=== PATIENT | female | born 1965 | race Caucasian/White ===

== ENCOUNTER 2021-05-27 11:39 | Outpatient (REF) | payer OTHER, SELFPAY ==
[2021-05-27 12:16] LABS: MANUAL DIFF FLAG NO
[2021-05-27 12:31] LABS: Basophils Percent Auto 0.7 % (0-2); Eosinophils Absolute Auto 0.1 X10*3/uL (0.0-0.4); Eosinophils Percent Auto 2.1 % (0-4); Hematocrit 38.3 % (37-47); Hemoglobin 12.5 g/dl (12.0-16.0); Imm Gran Abs Auto 0.03 X10*3/uL (0.00-0.03); Imm Gran Pct Auto 0.5 % (0.0-0.4); Lymphocytes Absolute Auto 1.6 X10*3/uL (1.2-4.9); Lymphocytes Percent Auto 27.1 % (20-40); Mean Corpuscular HGB Conc 32.6 g/dl (31.0-35.0); Mean Corpuscular Hemoglobin 26.9 pg (27.0-33.0); Mean Corpuscular Volume 82.4 fL (80-98); Mean Platelet Volume 10.2 fL (9.4-12.3); Monocytes Absolute Auto 0.5 X10*3/uL (0.1-1.2); Monocytes Percent Auto 8.2 % (2-11); Neutrophils Absolute Auto 3.5 X10*3/uL (2.0-8.3); Neutrophils Percent Auto 61.4 % (45-73); Platelet Count 363 X10*3/uL (160-400); Red Blood Count 4.65 X10*6/uL (4.20-5.50); White Blood Count 5.7 X10*3/uL (4.8-10.8)
[2021-05-27 12:32] LABS: Estimated Average Glucose 131 mg/dL; Hemoglobin A1c % 6.2 %
[2021-05-27 12:43] LABS: Alanine Aminotransferase 19 U/L (0-31); Alkaline Phosphatase 62 U/L (39-117); Anion Gap 11 (12-20); Aspartate Amino Transferase 13 U/L (5-31); Bilirubin Total 0.6 mg/dL (0.0-1.0); Blood Urea Nitrogen 14 mg/dL (9-16); Calcium 9.9 mg/dL (8.4-10.2); Carbon Dioxide 28 mmol/L (22-29); Chloride 106 mmol/L (96-108); Cholesterol 159 mg/dL; Estimated Glomerular Filt Rate > 60; Glucose Random 159 mg/dL (60-115); HDL Cholesterol 40 mg/dL; LDL Cholesterol Calculated 85 mg/dl; Potassium 4.7 mmol/L (3.3-5.1); Sodium 140 mmol/L (135-145); Total Protein 7.3 g/dL (6.5-8.0); Triglycerides 172 mg/dL
[2021-05-27 12:51] LABS: Creatinine Urine 111.25 mg/dL; Microalbum/Creatinine Ratio Ur 35.9 ug/mg cr
[2021-05-27 13:07] LABS: Free T4 (Free Thyroxine) 1.17 ng/dL (0.71-1.85); Thyroid Stimulating Hormone 2.53 uIU/mL (0.32-4.0); Vitamin D 25-OH Total 45.4 ng/mL (>30)
[2021-05-27 13:14] LABS: Folate 17.5 ng/mL (> or = 4.0); Vitamin B12 714 pg/mL (200-900)
== END 2021-05-27 11:40 | disposition home or self-care (01) ==
LOC: HO.LAB 11:39
PROVIDERS: PCP Internal Medicine; Visit Provider Internal Medicine
DX: I10 Essential (primary) hypertension (principal); E11.65 Type 2 diabetes mellitus with hyperglycemia; E78.00 Pure hypercholesterolemia, unspecified
CPT/HCPCS: 36415; 80053; 80061; 82043; 82306; 82607; 82746; 83036; 84439; 84443; 85025

== ENCOUNTER 2022-01-30 15:57 | Outpatient (REF) | payer OTHER, SELFPAY ==
[2022-01-30 16:15] LABS: MANUAL DIFF FLAG NO
[2022-01-30 16:20] LABS: Basophils Percent Auto 0.5 % (0-2); Eosinophils Absolute Auto 0.2 X10*3/uL (0.0-0.4); Eosinophils Percent Auto 2.5 % (0-4); Hematocrit 38.3 % (37.0-47.0); Hemoglobin 12.7 g/dl (12.0-16.0); Imm Gran Abs Auto 0.05 X10*3/uL (0.00-0.03); Imm Gran Pct Auto 0.6 % (0.0-0.4); Lymphocytes Absolute Auto 1.8 X10*3/uL (1.2-4.9); Lymphocytes Percent Auto 20.6 % (20-40); Mean Corpuscular HGB Conc 33.2 g/dl (31.0-35.0); Mean Corpuscular Hemoglobin 27.1 pg (27.0-33.0); Mean Corpuscular Volume 81.7 fL (80.0-98.0); Mean Platelet Volume 9.9 fL (9.4-12.3); Monocytes Absolute Auto 0.7 X10*3/uL (0.1-1.2); Monocytes Percent Auto 7.6 % (2-11); Neutrophils Percent Auto 68.2 % (45-73); Platelet Count 340 X10*3/uL (160-400); Red Blood Count 4.69 X10*6/uL (4.20-5.50); Red Cell Distribution Width 13.7 % (11.0-16.0); White Blood Count 8.8 X10*3/uL (4.8-10.8)
[2022-01-30 17:05] LABS: Alanine Aminotransferase 17 U/L (0-31); Albumin Level 3.9 g/dL (3.5-5.0); Alkaline Phosphatase 74 U/L (39-117); Anion Gap 11 (12-20); Aspartate Amino Transferase 12 U/L (5-31); Bilirubin Total 0.4 mg/dL (0.0-1.0); Blood Urea Nitrogen 20 mg/dL (9-16); Calcium 10.4 mg/dL (8.4-10.2); Carbon Dioxide 30 mmol/L (22-29); Chloride 103 mmol/L (96-108); Cholesterol 158 mg/dL; Estimated Glomerular Filt Rate > 60; Glucose Random 130 mg/dL (60-115); HDL Cholesterol 41 mg/dL; LDL Cholesterol Calculated 88 mg/dl; Potassium 4.7 mmol/L (3.3-5.1); Sodium 139 mmol/L (135-145); Total Protein 7.4 g/dL (6.5-8.0); Triglycerides 149 mg/dL
[2022-01-30 17:16] LABS: Estimated Average Glucose 146 mg/dL; Hemoglobin A1c % 6.7 %
[2022-01-30 17:26] LABS: Free T4 (Free Thyroxine) 1.15 ng/dL (0.71-1.85); Thyroid Stimulating Hormone 1.85 uIU/mL (0.32-4.0)
[2022-01-30 18:02] LABS: Folate > 20.0 ng/mL (> or = 4.0); Vitamin B12 698 pg/mL (200-900)
== END 2022-01-30 15:58 | disposition home or self-care (01) ==
LOC: HO.LAB 15:57
PROVIDERS: PCP Internal Medicine; Visit Provider Internal Medicine
DX: E11.65 Type 2 diabetes mellitus with hyperglycemia (principal); E78.00 Pure hypercholesterolemia, unspecified
CPT/HCPCS: 36415; 80053; 80061; 82607; 82746; 83036; 84439; 84443; 85025

== ENCOUNTER 2023-08-04 11:35 | Outpatient (AMB) | payer OTHER, SELFPAY ==
--- NOTE | 2023-08-04 11:38 | MHC.PC.OV ---
Intake Visit Reasons: Diabetes mellitus Allergies metformin Adverse Reaction (Mild, Verified 08/04/23 11:38) diarrhea Medication List - Last Reconciled 08/04/23 by Vida Catherine MD acetaminophen (Tylenol) 650 mg PO Q6H PRN blood sugar diagnostic (FreeStyle Lite Strips) As directed check the BS QD blood-glucose meter (FreeStyle Lite Meter kit) As directed dextromethorphan polistirex ER (Delsym 12 hour) 10 mL PO Q12H PRN flash glucose scanning reader (FreeStyle Shreya 2 [place]) As directed flash glucose sensor (FreeStyle Shreya 2 Sensor kit) As directed glimepiride 4 mg PO DAILY guaifenesin ER (Mucinex) 600 mg PO BID PRN lancets (FreeStyle Lancets) As directed check BS QD lisinopril 10 mg PO DAILY loratadine 10 mg PO DAILY 90 days meloxicam 15 mg PO DAILY 90 days multivitamin 1 tab PO DAILY pioglitazone 15 mg PO DAILY 90 days simvastatin 5 mg PO DAILY Tobacco use date assessed: 09/24/22 Dental Screening Dental Screen Date: 08/04/23 Did you have a dental visit in the last 12 months?: No Did you have a dental problem in the last 6 months where you did not have access to dental care?: No Was dental information given to patient?: Patient has dentist HPI Diabetes mellitus HPI Details 58-year-old morbidly obese female with diabetes hypercholesterolemia hypertension generalized anxiety disorder last spoken with earlier this year through Telehealth patient has not done the blood work and has not been seen in the office. coughing 4 days - daughter dx as croup. no fevers, no sore throat, no sob. walking 4 x a week now- previously 288 lbs since november now 244 lbs. also sees counselling weekly- has a next schedule in November. [facility] Medical History (Updated 08/04/23 @ 13:25 by Vida Catherine MD) Pancreatitis Splenomegaly Hypertension Insomnia Cholelithiasis Hypercholesterolemia Obesity Type 2 diabetes mellitus with hyperglycemia Surgical History (Updated 08/07/20 @ 13:49 by Isabella Carty Nini) History of tonsillectomy History of section Family History (Updated 12/30/22 @ 10:54 by Aylin Colin CMA) Other Mental health disorder Social History (Updated 11/14/20 @ 10:33 by Aylin Colin [facility] House Alcohol intake: never Patient Tobacco Use Status: Never used Tobacco Tobacco use type: Cigarette e-Cigarette/Vaping Use: Never Used Second Hand Smoke Exposure: No Current occupational status: disabled Cognitive needs: No Hearing needs: No Vision needs: Yes Questionnaire PHQ-9 Over the last 2 weeks, how often have you been bothered by any of the following problems? 1. Little interest or pleasure in doing things: more than half the days 2. Feeling down, depressed, or hopeless: more than half the days 3. Trouble falling or staying asleep, or sleeping too much: more than half the days 4. Feeling tired or having little energy: more than half the days 5. Poor appetite or overeating: more than half the days 6. Feeling bad about yourself - or that you are a failure or have let yourself or your family down: more than half the days 7. Trouble concentrating on things, such as reading the newspaper or watching television: more than half the days 8. Moving or speaking so slowly that other people could have noticed. Or the opposite - being so fidgety or restless that you have been moving around a lot more than usual: more than half the days 9. Thoughts that you would be better off or of hurting yourself in some way: not at all Total score: 16 Depression Screening Interpretation: Positive Depression Screening Done: Yes Source: Developed by Drs. Ky Shen, Efrain Adam and colleagues, with an educational myke from [employer]. Thrive Questionnaire Date Thrive assessed: 09/24/22 AUDIT C Alcohol Use Questionnaire (AUDIT-C) 1. How often do you have a drink containing alcohol?: Never 3. How often do you have six or more drinks on one occasion?: Never Total Score: 0 SHEELA-7 AMB Questionnaire SHEELA-7 Date SHEELA - 7 assessed: 09/24/22 Source: Developed by Drs. Ky Shen, Efrain Adam and colleagues, with an educational myke from [employer]. Physical exam (Primary Care) Tobacco/Smoking Status: Tobacco use Status Tobacco use date assessed 09/24/22 08/04/23 11:39 Patient Tobacco Use Status Never used Tobacco 08/04/23 11:39 Tobacco use type Cigarette 08/04/23 11:39 e-Cigarette/Vaping Use Never Used 08/04/23 11:39 PHQ-9: PHQ-9 Score PHQ-9: Total score 16 08/04/23 12:34 Depression Screening Interpretation: Positive Thrive Assessment: Date of Thrive Assessment Date Thrive assessed 09/24/22 08/04/23 11:39 Telehealth Telehealth Location of provider rendering services: practice address Location of patient: address on file Patient Identification confirmed using: Name, : Yes Telehealth method: video (Iphone) Patient verbally consented to treatment: Yes Patient verbally consented to billing insurance company: Yes Patient informed of any privacy concerns related to visit: Yes Minutes spent on Phone/Video with Pt.: 25 Assessment and Plan Assessment & Plan (1) Type 2 diabetes mellitus with hyperglycemia: Code(s): E11.65 - Type 2 diabetes mellitus with hyperglycemia Qualifiers: Diabetes mellitus mcc insulin use: without lobsterman use Qualified Code(s): E11.65 - Type 2 diabetes mellitus with hyperglycemia Plan: Decrease the amount of carbohydrate intake, pasta, bread, rice and potatoes are all sugar and that is aside from all the sweet stuff, remember that fruits are good but they are Sweet also. Patient is taking pioglitazone glimepiride for the diabetes blood work strongly advised to get it (2) Hypercholesterolemia: Code(s): E78.00 - Pure hypercholesterolemia, unspecified Plan: Avoid fried foods, chicken skin, eggs, butter margarine, pastries and meat. Be it pork or beef they have a lot of cholesterol LDL goal of less than 100 and triglyceride of less than 150 blood work not done (3) Hypertension: Code(s): I10 - Essential (primary) hypertension Qualifiers: Hypertension type: essential hypertension Qualified Code(s): I10 - Essential (primary) hypertension Plan: Continue with blood pressure medication. Decrease salt intake and exercise on lisinopril 10 mg once a day (4) Generalized anxiety disorder: Comment: [facility] (05/2022) Code(s): F41.1 - Generalized anxiety disorder Plan: continue with counselling and therapy (5) Cough: Code(s): R05.9 - Cough, unspecified Plan: meds sent , increase oral fluids Medications: New dextromethorphan polistirex ER (Delsym 12 hour) 10 mL PO Q12H PRN 89 mL 0RF cough R05.9 - Cough, unspecified guaifenesin ER (Mucinex) 600 mg PO BID PRN 20 tabs 0RF cough R05.9 - Cough, unspecified Refilled blood-glucose meter (FreeStyle Lite Meter kit) As directed 1 ea 0RF E11.65 - Type 2 diabetes mellitus with hyperglycemia Coding Level of Care Code Tele Est Pt Level 4 (68903) Diagnoses Type 2 diabetes mellitus with hyperglycemia, without long-term current use of insulin E11.65 Diabetes mellitus mcc insulin use: without lobsterman use Hypercholesterolemia E78.00 Essential hypertension I10 Hypertension type: essential hypertension Generalized anxiety disorder F41.1 Cough R05.9
== END 2023-08-04 13:51 | disposition home or self-care (01) ==
LOC: HO.HMGH 11:35
PROVIDERS: PCP Internal Medicine; Visit Provider Internal Medicine
DX: E11.65 Type 2 diabetes mellitus with hyperglycemia (principal); E78.00 Pure hypercholesterolemia, unspecified; I10 Essential (primary) hypertension; F41.1 Generalized anxiety disorder; R05.9 Cough, unspecified
CPT/HCPCS: 99214

== ENCOUNTER 2023-10-23 10:03 | Outpatient (REF) | payer OTHER, SELFPAY ==
[2023-10-23 10:28] LABS: MANUAL DIFF FLAG NO
[2023-10-23 11:46] LABS: Basophils Percent Auto 0.5 % (0-2); Eosinophils Absolute Auto 0.1 X10*3/uL (0.0-0.4); Eosinophils Percent Auto 1.6 % (0-4); Hematocrit 38.7 % (37.0-47.0); Hemoglobin 13.1 g/dl (12.0-16.0); Imm Gran Abs Auto 0.06 X10*3/uL (0.00-0.03); Imm Gran Pct Auto 0.8 % (0.0-0.4); Lymphocytes Absolute Auto 1.2 X10*3/uL (1.2-4.9); Mean Corpuscular HGB Conc 33.9 g/dl (31.0-35.0); Mean Corpuscular Hemoglobin 27.2 pg (27.0-33.0); Mean Corpuscular Volume 80.3 fL (80.0-98.0); Mean Platelet Volume 10.3 fL (9.4-12.3); Monocytes Absolute Auto 0.5 X10*3/uL (0.1-1.2); Monocytes Percent Auto 6.4 % (2-11); Neutrophils Absolute Auto 5.5 x10*3/uL (2.0-8.3); Neutrophils Percent Auto 74.7 % (45-73); Platelet Count 371 X10*3/uL (160-400); Red Blood Count 4.82 X10*6/uL (4.20-5.50); Red Cell Distribution Width 13.9 % (11.0-16.0); White Blood Count 7.3 X10*3/uL (4.8-10.8)
[2023-10-23 11:49] LABS: Estimated Average Glucose 318 mg/dL; Hemoglobin A1c % 12.7 % (<6.0)
[2023-10-23 12:32] LABS: Free T4 (Free Thyroxine) 1.07 ng/dL (0.71-1.85); Thyroid Stimulating Hormone 1.68 uIU/mL (0.32-4.0); Vitamin D 25-OH Total 43.3 ng/mL (>30)
[2023-10-23 12:40] LABS: Anion Gap 12 (12-20); Calcium 9.6 mg/dL (8.4-10.2); Carbon Dioxide 27 mmol/L (22-29); Chloride 100 mmol/L (96-108); Estimated Glomerular Filt Rate > 60; Potassium 4.2 mmol/L (3.3-5.1); Sodium 135 mmol/L (135-145)
[2023-10-23 12:41] LABS: Alanine Aminotransferase 17 U/L (0-31); Albumin Level 3.8 g/dL (3.5-5.0); Alkaline Phosphatase 139 U/L (39-117); Aspartate Amino Transferase 14 U/L (5-31); Bilirubin Total 0.4 mg/dL (0.0-1.0); Blood Urea Nitrogen 14 mg/dL (9-16); Cholesterol 190 mg/dL (<200); Folate 14.5 ng/mL (> or = 4.0); HDL Cholesterol 59 mg/dL (>40); LDL Cholesterol Calculated 112 mg/dL (<100); Total Protein 7.5 g/dL (6.5-8.0); Triglycerides 98 mg/dL (<150); Vitamin B12 928 pg/mL (200-900)
[2023-10-23 12:48] LABS: Glucose Random 393 mg/dL (60-115)
== END 2023-10-23 10:04 | disposition home or self-care (01) ==
LOC: HO.LAB 10:03
PROVIDERS: PCP Internal Medicine; Visit Provider Internal Medicine
DX: E11.65 Type 2 diabetes mellitus with hyperglycemia (principal); E78.00 Pure hypercholesterolemia, unspecified
CPT/HCPCS: 36415; 80053; 80061; 82306; 82607; 82746; 83036; 84439; 84443; 85025

== ENCOUNTER 2023-11-05 09:54 | Outpatient (AMB) | payer OTHER, SELFPAY ==
--- NOTE | 2023-11-05 09:55 | A.OFFPC_ITS ---
Intake Visit Reasons: 3 month follow up Allergies metformin Adverse Reaction (Mild, Verified 08/04/23 11:38) diarrhea Tobacco use date assessed: 11/05/23 Dental Screening Dental Screen Date: 11/05/23 HPI 3 month follow up HPI Details 58-year-old obese female with uncontroll ed diabetes mellitus hypertension hypercholesterolemia generalized anxiety disorder coming in for follow-up through Telehealth. Last seen in July 2023 patient was advised to be followed up in the office but chose to be through Telehealth. AM BS 300, apple and rasbery, lunch oatmeal dinner salmon and brocolli . yogurt- 60- PFSH Medical History (Updated 08/04/23 @ 13:25 by Vida Catherine MD) Pancreatitis Splenomegaly Hypertension Insomnia Cholelithiasis Hypercholesterolemia Obesity Type 2 diabetes mellitus with hyperglycemia Surgical History (Updated 08/07/20 @ 13:49 by Isabella Carty) History of tonsillectomy History of section Family History (Updated 12/30/22 @ 10:54 by Aylin Colin CMA) Other Mental health disorder Social History (Updated 11/14/20 @ 10:33 by Aylin Colin CMA) Housing: House Alcohol intake: never Patient Tobacco Use Status: Never used Tobacco Tobacco use type: Cigarette e-Cigarette/Vaping Use: Never Used Second Hand Smoke Exposure: No Current occupational status: disabled Cognitive needs: No Hearing needs: No Vision needs: Yes Questionnaire Thrive Questionnaire Date Thrive assessed: 11/05/23 I am a: Patient What is your living situation today?: I have a steady place to live Within the past 12 months, did the food you bought not last and you didn't have the money to get more?: Never true Within the past 12 months, did you worry whether your food would run out before you got money to buy more?: Never true Do you have trouble paying for medicines?: No Do you have trouble getting transportation to medical appointments?: No Do you have trouble paying your heating and electricity bill?: No Do you have trouble taking care of your child, family member or friend?: No Do you have trouble with day-to-day activities such as bathing, preparing meals, shopping, managing finances, etc.?: No Are you currently unemployed and looking for a job?: No Are you interested in more education?: No Please select the resources that you would like help with: None THRIVE Score: 0 AUDIT C Alcohol Use Questionnaire (AUDIT-C) 1. How often do you have a drink containing alcohol?: Never 3. How often do you have six or more drinks on one occasion?: Never Total Score: 0 SHEELA-7 AMB Questionnaire SHEELA-7 Date SHEELA - 7 assessed: 11/05/23 Source: Developed by Drs. Ky Shen, Emely Gill, Efrain Chavarria and colleagues, with an educational myke from [employer]. Physical exam (Primary Care) Tobacco/Smoking Status: Tobacco use Status Tobacco use date assessed 11/05/23 11/05/23 09:58 Patient Tobacco Use Status Never used Tobacco 11/05/23 09:58 Tobacco use type Cigarette 11/05/23 09:58 e-Cigarette/Vaping Use Never Used 11/05/23 09:58 Thrive Assessment: Date of Thrive Assessment Date Thrive assessed 11/05/23 11/05/23 09:58 Telehealth Telehealth Location of provider rendering services: practice address Location of patient: address on file Patient Identification confirmed using: Name, : Yes Telehealth method: video (iphone ) Patient verbally consented to treatment: Yes Patient verbally consented to billing insurance company: Yes Patient informed of any privacy concerns related to visit: Yes Assessment and Plan Assessment & Plan (1) Type 2 diabetes mellitus with hyperglycemia: Code(s): E11.65 - Type 2 diabetes mellitus with hyperglycemia Qualifiers: Diabetes mellitus extermination inspector insulin use: without residential use Qualified Code(s): E11.65 - Type 2 diabetes mellitus with hyperglycemia Plan: Decrease the amount of carbohydrate intake, pasta, bread, rice and potatoes are all sugar and that is aside from all the sweet stuff, remember that fruits are good but they are Sweet also. Hemoglobin A1c goal of less than 6.5 presently on glimepiride 4 mg once a day pioglitazone 15 mg once a day patient had problems with metformin with diarrhea. (2) Obesity: Code(s): E66.9 - Obesity, unspecified Qualifiers: Body mass index: BMI 40.0-44.9 Obesity classification: adult class 3 (BMI >= 40) Obesity type: due to excess calories Serious obesity comorbidity presence: with serious comorbidity Qualified Code(s): E66.01 - Morbid (severe) obesity due to excess calories; Z68.41 - Body mass index [BMI]40.0-44.9, adult Plan: Diet and exercise (3) Hypercholesterolemia: Code(s): E78.00 - Pure hypercholesterolemia, unspecified Plan: Avoid fried foods, chicken skin, eggs, butter margarine, pastries and meat. Be it pork or beef they have a lot of cholesterol on simvastatin 5 mg once a day (4) Hypertension: Code(s): I10 - Essential (primary) hypertension Qualifiers: Hypertension type: essential hypertension Qualified Code(s): I10 - Essential (primary) hypertension Plan: Patient on lisinopril 10 mg once a day no blood pressure be evaluated. (5) Generalized anxiety disorder: Comment: [facility] (05/2022) Code(s): F41.1 - Generalized anxiety disorder Plan: Discussed about counseling and therapy. (6) Breast cancer screening by mammogram: Code(s): Z12.31 - Encounter for screening mammogram for malignant neoplasm of breast Plan: Reminded about mammogram (7) Colon cancer screening: Code(s): Z12.11 - Encounter for screening for malignant neoplasm of colon Plan: Reminded about colonoscopy (8) Cervical cancer screening: Code(s): Z12.4 - Encounter for screening for malignant neoplasm of cervix Plan: Remainder about cervical cancer screening Orders: Orders Liver Panel 3 Months E11.65 - Type 2 diabetes mellitus with hyperglycemia, R79.89 - Other specified abnormal findings of blood chemistry Comprehensive Met. Panel 3 Months E11.65 - Type 2 diabetes mellitus with hyperglycemia Hemoglobin A1c 3 Months E11.65 - Type 2 diabetes mellitus with hyperglycemia Medications: New empagliflozin (Jardiance) 10 mg PO DAILY 30 tabs 2RF E11.65 - Type 2 diabetes mellitus with hyperglycemia Changed From simvastatin 5 mg PO DAILY 90 tabs 3RF E78.00 - Pure hypercholesterolemia, unspecified To simvastatin 10 mg PO DAILY 90 tabs 3RF E78.00 - Pure hypercholesterolemia, unspecified Coding Level of Care Code Tele [facility] Pt Level 4 (16718) Diagnoses Type 2 diabetes mellitus with hyperglycemia, without long-term current use of insulin E11.65 Diabetes mellitus extermination inspector insulin use: without residential use Class 3 severe obesity due to excess calories with serious comorbidity and body mass index (BMI) of 40.0 to 44.9 in adult E66.01; Z68.41 Body mass index: BMI 40.0-44.9 Obesity classification: adult class 3 (BMI >= 40) Obesity type: due to excess calories Serious obesity comorbidity presence: with serious comorbidity Hypercholesterolemia E78.00 Essential hypertension I10 Hypertension type: essential hypertension Generalized anxiety disorder F41.1 Breast cancer screening by mammogram Z12.31 Colon cancer screening Z12.11 Cervical cancer screening Z12.4
== END 2023-11-05 13:10 | disposition home or self-care (01) ==
LOC: HO.HMGH 09:54
PROVIDERS: PCP Internal Medicine; Visit Provider Internal Medicine
DX: E11.65 Type 2 diabetes mellitus with hyperglycemia (principal); E66.01 Morbid (severe) obesity due to excess calories; Z68.41 Body mass index [BMI] 40.0-44.9, adult; E78.00 Pure hypercholesterolemia, unspecified; I10 Essential (primary) hypertension; F41.1 Generalized anxiety disorder; Z12.31 Encounter for screening mammogram for malignant neoplasm of breast; Z12.11 Encounter for screening for malignant neoplasm of colon; Z12.4 Encounter for screening for malignant neoplasm of cervix
CPT/HCPCS: 99214

== ENCOUNTER 2024-02-04 10:51 | Outpatient (AMB) | payer OTHER, SELFPAY ==
--- NOTE | 2024-02-04 10:55 | A.OFFPC_ITS ---
Vital Signs 3 02/04/24 10:57 Height 5 ft 2 in Weight 240 lb 0.2 oz BMI 43.9 BP 136/92 H Blood Pressure Location Lt brachial Position Sitting Pulse 80 Pulse Source Pulse Oximeter Pulse Oximetry (%) 99 Oxygen Delivery Method Room Air Intake Visit Reasons: PE+ NEEDS A1C Supervisor Phosphorus Processing Required: No Allergies metformin Adverse Reaction (Mild, Verified 02/04/24 10:57) diarrhea Medication List - Last Reconciled 02/04/24 by Vida Catherine MD acetaminophen (Tylenol) 650 mg PO Q6H PRN ascorbate calcium (vitamin C) 500 mg PO DAILY blood pressure monitor (Blood Pressure Kit) As directed blood sugar diagnostic (FreeStyle Lite Strips) As directed check the BS QD blood-glucose meter (FreeStyle Lite Meter kit) As directed cholecalciferol (vitamin D3) 25 mcg PO DAILY elderberry fruit mg PO flash glucose scanning reader (MysafeplaceStyle Shreya 2 [place]) As directed flash glucose sensor (FreeStyle Shreya 2 Sensor kit) As directed glimepiride 4 mg PO DAILY lactobacillus combination no.4 (Probiotic) 3,000 mmu cells PO DAILY lancets (FreeStyle Lancets) As directed check BS QD lisinopril 10 mg PO DAILY loratadine 10 mg PO DAILY 90 days meloxicam 15 mg PO DAILY 90 days multivitamin 1 tab PO DAILY pioglitazone 15 mg PO DAILY 90 days simvastatin 10 mg PO DAILY turmeric mg PO Tobacco use date assessed: 02/04/24 Dental Screening Dental Screen Date: 11/05/23 Did you have a dental visit in the last 12 months?: No Did you have a dental problem in the last 6 months where you did not have access to dental care?: No Was dental information given to patient?: Patient has dentist HPI PE+ NEEDS A1C 2 HPI0 Details 58-year-old morbidly obese female with u ncontrolled diabetes mellitus hypercholesterolemia hypertension generalized anxiety disorder last seen in 11/24/2023. Patient was advised to get mammogram colonoscopy and cervical cancer screening. [facility] Medical History (Updated 02/04/24 @ 11:49 by Vida Catherine MD) Obesity Pancreatitis Splenomegaly Hypertension Insomnia Cholelithiasis Hypercholesterolemia Type 2 diabetes mellitus with hyperglycemia Surgical History (Updated 08/07/20 @ 13:49 by Isabella Carty) History of tonsillectomy History of section Family History (Updated 12/30/22 @ 10:54 by Aylin Colin CMA) Other Mental health disorder Social History (Updated 11/14/20 @ 10:33 by Aylin Colin [facility]) Housing: House Alcohol intake: never Patient Tobacco Use Status: Never used Tobacco Tobacco use type: Cigarette e-Cigarette/Vaping Use: Never Used Second Hand Smoke Exposure: No Current occupational status: disabled Cognitive needs: No Hearing needs: No Vision needs: Yes Questionnaire PHQ-9 Over the last 2 weeks, how often have you been bothered by any of the following problems? 1. Little interest or pleasure in doing things: not at all 2. Feeling down, depressed, or hopeless: not at all 3. Trouble falling or staying asleep, or sleeping too much: not at all 4. Feeling tired or having little energy: not at all 5. Poor appetite or overeating: not at all Source: Developed by Drs. Ky Shen, mEely Gill, Efrain Chavarria and colleagues, with an educational myke from [employer]. Thrive Questionnaire Date Thrive assessed: 11/05/23 AUDIT C Alcohol Use Questionnaire (AUDIT-C) 1. How often do you have a drink containing alcohol?: Never 3. How often do you have six or more drinks on one occasion?: Never Total Score: 0 SHEELA-7 AMB Questionnaire SHEELA-7 Date SHEELA - 7 assessed: 11/05/23 Feeling nervous, anxious, or on edge: 0 = Not at all Not being able to stop or control worryin = Not at all Worrying too much about different things: 0 = Not at all Trouble relaxin = Not at all Being so restless that it is hard to sit still: 0 = Not at all Becoming easily annoyed or irritable: 0 = Not at all Feeling afraid as if something awful might happen: 0 = Not at all Total SHEELA-7 score (0-4 normal; 5-9 mild; 10-14 moderate; 15-21 severe): 0 Source: Developed by Drs. Ky Shen, Emely Gill, Efrain Chavarria and colleagues, with an educational myke from [employer]. SHEELA-7 Assessment Billing SHEELA-7 Assessment Tool: SHEELA-7 Assessment 52119 Review of Systems Const Denies poor appetite and Denies weakness Eyes Denies no additional complaints ENT Reports Normal hearing present, Denies dizziness, Denies nasal congestion, Denies tinnitus and Denies sore throat Card Denies chest pain, Denies syncope, Denies rapid heart rate and Denies dyspnea Resp Denies cough and Denies dyspnea GI Denies change in stool character, Reports constipation, Denies diarrhea, Denies nausea and Denies vomiting Denies urinary frequency, Denies difficulty voiding and Denies dysuria Neuro Reports Normal hearing present, Denies confusion, Denies dizziness, Denies syncope and Denies weakness Psych Denies confusion Physical exam (Primary Care) Vital Signs: Last Vital Signs Pulse 80 02/04/24 10:57 BP 136/92 H 02/04/24 10:57 Pulse Ox 99 02/04/24 10:57 Oxygen Delivery Method Room Air 02/04/24 10:57 BMI result Body Mass Index 43.9 Tobacco/Smoking Status: Tobacco use Status Tobacco use date assessed 02/04/24 02/04/24 11:02 Patient Tobacco Use Status Never used Tobacco 02/04/24 11:02 Tobacco use type Cigarette 02/04/24 11:02 e-Cigarette/Vaping Use Never Used 02/04/24 11:02 Thrive Assessment: Date of Thrive Assessment Date Thrive assessed 11/05/23 02/04/24 11:02 Const General: No confusion Orientation/consciousness: No confusion HENMT Head: Yes normocephalic Ears: external ears normal and TM's normal bilaterally Face and sinus: Yes normal facial exam Mouth: moist mucous membranes Throat: Yes tonsils normal Eyes Conjunctivae: conjunctivae normal Pupils: Equal, round and reactive pupils present and Pupil accommodation reflex normal Direct Ophthalmoscopy: normal light reflex Neck Neck: No lymphadenopathy Thyroid: Thyroid normal Chest Chest palpation & inspection: normal inspection of the chest Resp Effort & Inspection: normal respiratory effort and no audible wheezes Auscultation: clear to auscultation bilaterally, no crackles, no wheezes and lung sounds not diminished Cardio Rate: regular rate Rhythm: regular rhythm Peripheral pulses: radial pulses present and dorsalis pedis present GI Palpation (GI): no masses Auscultation: normal bowel sounds and normoactive bowel sounds Rectal Exam - Female: deferred Skin General skin exam: no rashes or lesions noted Rashes: no rashes Neuro General: No confusion Cranial nerves: Yes Equal, round and reactive pupils present and Yes Normal hearing present Cognition (Neuro): normal cognition Gait exam (Neuro): Normal gait present Motor exam (neuro): 5/5 motor strength present throughout Deep tendon reflexes (DTR's): Right brachioradialis reflex intensity grade: 2+, Left brachioradialis reflex intensity grade: 2+, Right patellar reflex intensity grade: 2+ and Left patellar reflex intensity grade: 2+ Extrem General: No edema Elbow/forearm/wrist images: 2 1. R leg redness with swelling and scaly rash Results AMB Hemoglobin A1c 2 AMB Hemoglobin A1c 11.4 % Last Edit by LAN Avila on 02/04/24 11:05 Results Reviewed Results Reviewed: Laboratory Last Values Hgb A1c (Clinic) 11.4 % (4.0-6.0) H 02/04/24 10:31 Assessment and Plan Assessment & Plan (1) Annual physical exam: Code(s): Z00.00 - Encounter for general adult medical examination without abnormal findings (2) Type 2 diabetes mellitus with hyperglycemia: Comment: Dr. Goode Code(s): E11.65 - Type 2 diabetes mellitus with hyperglycemia Qualifiers: Diabetes mellitus senior care insulin use: without heating mechanic use Q ualified Code(s): E11.65 - Type 2 diabetes mellitus with hyperglycemia Plan: Decrease the amount of carbohydrate intake, pasta, bread, rice and potatoes are all sugar and that is aside from all the sweet stuff, remember that fruits are good but they are Sweet also. Hemoglobin A1c goal of less than 6.5. Patient on pioglitazone and glimepiride (3) Morbid obesity: Code(s): E66.01 - Morbid (severe) obesity due to excess calories Plan: Diet and exercise (4) Hypercholesterolemia: Code(s): E78.00 - Pure hypercholesterolemia, unspecified Plan: Avoid fried foods, chicken skin, eggs, butter margarine, pastries and meat. Be it pork or beef they have a lot of cholesterol LDL goal of less than 100 and triglyceride of less than 150 patient has been advised to repeat the blood work but not done. Patient on simvastatin 10 mg (5) Hypertension: Code(s): I10 - Essential (primary) hypertension Qualifiers: Hypertension type: essential hypertension Qualified Code(s): I10 - Essential (primary) hypertension Plan: Continue with blood pressure medication. Decrease salt intake and exercise on lisinopril 10 mg once a day (6) Breast cancer screening by mammogram: Code(s): Z12.31 - Encounter for screening mammogram for malignant neoplasm of breast Plan: Patient is reminded about mammogram again (7) Colon cancer screening: Code(s): Z12.11 - Encounter for screening for malignant neoplasm of colon Plan: Patient did not send in the Cologuard testing requested. (8) Cervical cancer screening: Code(s): Z12.4 - Encounter for screening for malignant neoplasm of cervix Plan: Patient is reminded about colon cancer screening (9) Generalized anxiety disorder: [facility] Code(s): F41.1 - Generalized anxiety disorder Plan: Patient is advised to continue on with counseling therapy. (10) Cellulitis of leg, right: Code(s): L03.115 - Cellulitis of right lower limb Orders: Orders 2 AMB Hemoglobin A1c Today E11.65 - Type 2 diabetes mellitus with hyperglycemia MM tomosynthesis screening BI Today Z12.31 - Encounter for screening mammogram for malignant neoplasm of breast Complete Blood Count Auto Diff 3 Months E78.00 - Pure hypercholesterolemia, unspecified Comprehensive Met. Panel 3 Months E78.00 - Pure hypercholesterolemia, unspecified Referrals 2 Cologuard Test Z12.11 - Encounter for screening for malignant neoplasm of colon Medications: New 2 blood pressure monitor (Blood Pressure Kit) As directed 1 ea 0RF I10 - Essential (primary) hypertension insulin glargine (Lantus Solostar U-100 Insulin) or as directed 10 units (0.1 mL) subcut DAILY 30 days 3 mL 3RF E11.65 - Type 2 diabetes mellitus with hyperglycemia pen needle, diabetic (BD Ultra-Fine Mini Pen Needle) As directed inject lantus once a day 10 u or as directed 100 ea 3RF E11.65 - Type 2 diabetes mellitus with hyperglycemia amoxicillin-pot clavulanate 875-125 mg 1 tab PO BID 14 tabs 0RF L03.115 - Cellulitis of right lower limb Coding Level of Care Code Est Pt Level 3 (89247) Est Pt Prev Care 40-64y(08112) Diagnoses Annual physical exam Z00.00 Type 2 diabetes mellitus with hyperglycemia, without long-term current use of insulin E11.65 Diabetes mellitus heating mechanic insulin use: without heating mechanic use Morbid obesity E66.01 Hypercholesterolemia E78.00 Essential hypertension I10 Hypertension type: essential hypertension Breast cancer screening by mammogram Z12.31 Colon cancer screening Z12.11 Cervical cancer screening Z12.4 Generalized anxiety disorder F41.1 Cellulitis of leg, right L03.115 Additional Codes SHEELA-7 Assessment Billing - SHEELA-7 Assessment Tool: SHEELA-7 Assessment [id number] ([id number])
[2024-02-04 10:57] VITALS: BP 136/92; PULSE 80; O2SAT 99; BMI 43.9
== END 2024-02-04 11:59 | disposition home or self-care (01) ==
PROVIDERS: PCP Internal Medicine; Visit Provider Internal Medicine
DX: Z00.00 Encounter for general adult medical examination without abnormal findings (principal); E11.65 Type 2 diabetes mellitus with hyperglycemia; E66.01 Morbid (severe) obesity due to excess calories; Z68.41 Body mass index [BMI] 40.0-44.9, adult; L03.115 Cellulitis of right lower limb; E78.00 Pure hypercholesterolemia, unspecified; I10 Essential (primary) hypertension; Z12.31 Encounter for screening mammogram for malignant neoplasm of breast; Z12.11 Encounter for screening for malignant neoplasm of colon; F41.1 Generalized anxiety disorder
CPT/HCPCS: 83036; 99213; 99396

== ENCOUNTER 2024-02-14 11:44 | Outpatient (AMB) | payer OTHER, SELFPAY ==
--- NOTE | 2024-02-14 11:45 | MHC.PC.OV ---
Intake Visit Reasons: Needle-phobic, right leg swelling Medical Technologist Generalist Required: No Allergies metformin Adverse Reaction (Mild, Verified 02/14/24 11:46) diarrhea Tobacco use date assessed: 02/04/24 Dental Screening Dental Screen Date: 11/05/23 HPI Needle-phobic, right leg swelling HPI Details 58-year-old morbidly obese female with uncontrolled diabetes mellitus was advised to start on insulin Lantus to the hemoglobin A1c more than 10. Patient can not tolerate the insulin and so is asking for other medications. Patient had some diarrhea from metformin but will try a lower dose and see if she can tolerate it. Once she can tolerate it she will have another agent to get the blood sugars lower. Patient also had some swelling on the right leg treated for infection was treated with antibiotic which has gotten better but still continues to have some redness and swelling. As for the weight patient states has been walking outside to about a mi and half a day advised to double that walk twice a day. [facility] Medical History (Updated 02/04/24 @ 11:49 by Vida Catherine MD) Obesity Pancreatitis Splenomegaly Hypertension Insomnia Cholelithiasis Hypercholesterolemia Type 2 diabetes mellitus with hyperglycemia Surgical History (Updated 08/07/20 @ 13:49 by Isabella Carty) History of tonsillectomy History of section Family History (Updated 12/30/22 @ 10:54 by Aylin Colin CMA) Other Mental health disorder Social History (Updated 11/14/20 @ 10:33 by Aylin Colin CMA) Housing: House Alcohol intake: never Patient Tobacco Use Status: Never used Tobacco Tobacco use type: Cigarette e-Cigarette/Vaping Use: Never Used Second Hand Smoke Exposure: No Current occupational status: disabled Cognitive needs: No Hearing needs: No Vision needs: Yes Questionnaire Thrive Questionnaire Date Thrive assessed: 11/05/23 AUDIT C Alcohol Use Questionnaire (AUDIT-C) 1. How often do you have a drink containing alcohol?: Never 3. How often do you have six or more drinks on one occasion?: Never Total Score: 0 SHEELA-7 AMB Questionnaire SHEELA-7 Date SHEELA - 7 assessed: 11/05/23 Source: Developed by Drs. Ky Shen, Emely Gill, Efrain Chavarria and colleagues, with an educational myke from [employer]. Physical exam (Primary Care) Tobacco/Smoking Status: Tobacco use Status Tobacco use date assessed 02/04/24 02/14/24 11:47 Patient Tobacco Use Status Never used Tobacco 02/14/24 11:47 Tobacco use type Cigarette 02/14/24 11:47 e-Cigarette/Vaping Use Never Used 02/14/24 11:47 Thrive Assessment: Date of Thrive Assessment Date Thrive assessed 11/05/23 02/14/24 11:47 Extrem Elbow/forearm/wrist images: 1. Telehealth video showing erythematous rash on the right anterior leg with scabbed area as well as desquamation Telehealth Telehealth Telehealth Platform: Telephone Location of provider rendering services: practice address Location of patient: address on file Patient Identification confirmed using: Name, : Yes Telehealth method: video Patient verbally consented to treatment: Yes Patient verbally consented to billing insurance company: Yes Patient informed of any privacy concerns related to visit: Yes Minutes spent on Phone/Video with Pt.: 25 Assessment and Plan Assessment & Plan (1) Type 2 diabetes mellitus with hyperglycemia: Comment: Dr. Goode Code(s): E11.65 - Type 2 diabetes mellitus with hyperglycemia Qualifiers: Diabetes mellitus director case management insulin use: without director case management use Qualified Code(s): E11.65 - Type 2 diabetes mellitus with hyperglycemia Plan: pioglitazone, will try metformin again. (2) Cellulitis of leg, right: Code(s): L03.115 - Cellulitis of right lower limb Plan: monitor and getting better. advised Bactrim (3) Morbid obesity: Code(s): E66.01 - Morbid (severe) obesity due to excess calories Plan: advised to increase activity to walk twice of a mile and half. Medications: New sulfamethoxazole-trimethoprim 800-160 mg (Bactrim DS) 1 tab PO BID 14 tabs 0RF L03.115 - Cellulitis of right lower limb metformin 500 mg PO BIDWMEAL 60 tabs 4RF E11.65 - Type 2 diabetes mellitus with hyperglycemia Discontinued insulin glargine (Lantus Solostar U-100 Insulin) or as directed Discontinued Reason: Patient Refused 10 units (0.1 mL) subcut DAILY 30 days 3 mL 3RF E11.65 - Type 2 diabetes mellitus with hyperglycemia amoxicillin-pot clavulanate 875-125 mg Discontinued Reason: Doctor's Order 1 tab PO BID 14 tabs 0RF L03.115 - Cellulitis of right lower limb Coding Level of Care Code Tele Est Pt Level 4 (14434) Diagnoses Type 2 diabetes mellitus with hyperglycemia, without long-term current use of insulin E11.65 Diabetes mellitus director case management insulin use: without snf use Cellulitis of leg, right L03.115 Morbid obesity E66.01
== END 2024-02-14 15:42 | disposition home or self-care (01) ==
LOC: HO.HMGH 11:44
PROVIDERS: PCP Internal Medicine; Visit Provider Internal Medicine
DX: E11.65 Type 2 diabetes mellitus with hyperglycemia (principal); E66.01 Morbid (severe) obesity due to excess calories; L03.115 Cellulitis of right lower limb
CPT/HCPCS: 99214

== ENCOUNTER 2024-06-09 10:39 | Outpatient (REF) | payer OTHER, SELFPAY ==
[2024-06-09 10:52] LABS: MANUAL DIFF FLAG NO
[2024-06-09 11:07] LABS: Basophils Percent Auto 0.5 % (0-2); Eosinophils Absolute Auto 0.1 X10*3/uL (0.0-0.4); Eosinophils Percent Auto 1.6 % (0-4); Hematocrit 36.8 % (37.0-47.0); Hemoglobin 12.1 g/dl (12.0-16.0); Imm Gran Abs Auto 0.04 X10*3/uL (0.00-0.03); Imm Gran Pct Auto 0.5 % (0.0-0.4); Lymphocytes Absolute Auto 1.4 X10*3/uL (1.2-4.9); Lymphocytes Percent Auto 17.7 % (20-40); Mean Corpuscular HGB Conc 32.9 g/dl (31.0-35.0); Mean Corpuscular Hemoglobin 27.4 pg (27.0-33.0); Mean Corpuscular Volume 83.3 fL (80.0-98.0); Mean Platelet Volume 9.3 fL (9.4-12.3); Monocytes Absolute Auto 0.6 X10*3/uL (0.1-1.2); Monocytes Percent Auto 7.1 % (2-11); Neutrophils Absolute Auto 5.8 x10*3/uL (2.0-8.3); Neutrophils Percent Auto 72.6 % (45-73); Platelet Count 373 X10*3/uL (160-400); Red Blood Count 4.42 X10*6/uL (4.20-5.50); Red Cell Distribution Width 13.7 % (11.0-16.0); White Blood Count 7.9 X10*3/uL (4.8-10.8)
[2024-06-09 11:14] LABS: Estimated Average Glucose 140 mg/dL; Hemoglobin A1C 142.3824 umol/L; Hemoglobin A1c % 6.5 % (<6.0); Total Hemoglobin (HGBA1C) 3011.6856 umol/L
[2024-06-09 13:20] LABS: Alanine Aminotransferase 13 U/L (0-31); Albumin Level 3.9 g/dL (3.5-5.0); Alkaline Phosphatase 72 U/L (39-117); Anion Gap 12 (12-20); Aspartate Amino Transferase 15 U/L (5-31); Bilirubin Direct 0.2 mg/dL (0.0-0.5); Bilirubin Total 0.4 mg/dL (0.0-1.0); Blood Urea Nitrogen 19 mg/dL (9-16); Calcium 9.7 mg/dL (8.4-10.2); Carbon Dioxide 26 mmol/L (22-29); Chloride 106 mmol/L (96-108); Estimated Glomerular Filt Rate > 60; Glucose Random 153 mg/dL (60-115); Potassium 4.5 mmol/L (3.3-5.1); Sodium 139 mmol/L (135-145); Total Protein 7.8 g/dL (6.5-8.0)
== END 2024-06-09 10:40 | disposition home or self-care (01) ==
LOC: HO.LAB 10:39
PROVIDERS: PCP Internal Medicine; Visit Provider Internal Medicine
DX: E11.65 Type 2 diabetes mellitus with hyperglycemia (principal); R79.89 Other specified abnormal findings of blood chemistry; E78.00 Pure hypercholesterolemia, unspecified
CPT/HCPCS: 36415; 80053; 82248; 83036; 85025

== ENCOUNTER 2024-06-13 10:40 | Outpatient (AMB) | payer OTHER, SELFPAY ==
--- NOTE | 2024-06-13 10:45 | MHC.PC.OV ---
Vital Signs 06/13/24 10:46 Height 5 ft 2 in Weight 245 lb BMI 44.8 BP 144/94 H Blood Pressure Location Lt brachial Position Sitting Pulse 95 Pulse Source Pulse Oximeter Pulse Oximetry (%) 100 Oxygen Delivery Method Room Air Intake Visit Reasons: DM, HTN Intake Note: Patient is here to follow up on DM, HTN. Pt decline flu shot today. Fitness/Wellness Director Required: No Reporting Developer: Not Required per policy Accompanied by: Self / Same As Patient Allergies metformin Adverse Reaction (Mild, Verified 06/13/24 10:45) diarrhea Tobacco use date assessed: 06/13/24 Dental Screening Dental Screen Date: 11/05/23 HPI DM, HTN HPI Details 59-year-old morbidly obese female noted 5 lb weight gain with diabetes mellitus. Patient comes in for follow-up last seen in February [facility] Medical History (Updated 06/13/24 @ 11:08 by Vida Catherine MD) Obesity Pancreatitis Splenomegaly Hypertension Insomnia Cholelithiasis Hypercholesterolemia Type 2 diabetes mellitus with hyperglycemia Surgical History History of tonsillectomy History of section Family History Other Mental health disorder Social History Housing: House Alcohol intake: never Patient Tobacco Use Status: Never used Tobacco Tobacco use type: Cigarette e-Cigarette/Vaping Use: Never Used Second Hand Smoke Exposure: No service: No Current occupational status: disabled Cognitive needs: No Hearing needs: No Vision needs: Yes Questionnaire Thrive Questionnaire Date Thrive assessed: 11/05/23 Are you currently unemployed and looking for a job?: No SHEELA-7 AMB Questionnaire SHEELA-7 Date SHEELA - 7 assessed: 11/05/23 Source: Developed by Drs. Ky Shen, Emely Gill, Efrain Chavarria and colleagues, with an educational myke from [employer]. Physical exam (Primary Care) Vital Signs: Last Vital Signs Pulse 95 06/13/24 10:46 BP 144/94 H 06/13/24 10:46 Pulse Ox 100 06/13/24 10:46 Oxygen Delivery Method Room Air 06/13/24 10:46 BMI result Body Mass Index 44.8 Tobacco/Smoking Status: Tobacco use Status Tobacco use date assessed 06/13/24 06/13/24 10:52 Patient Tobacco Use Status Never used Tobacco 06/13/24 10:52 Tobacco use type Cigarette 06/13/24 10:52 e-Cigarette/Vaping Use Never Used 06/13/24 10:52 Thrive Assessment: Date of Thrive Assessment Date Thrive assessed 11/05/23 06/13/24 10:52 Const General: alert; No acute distress Eyes Conjunctivae: conjunctivae normal Resp Auscultation: clear to auscultation bilaterally Cardio Rate: regular rate Rhythm: regular rhythm GI Inspection: Yes normal to inspection Extrem General: Yes normal to inspection and No edema Coding Level of Care Code Est Pt Level 4 (74874) Diagnoses Morbid obesity E66.01 Type 2 diabetes mellitus with hyperglycemia, without long-term current use of insulin E11.65 Diabetes mellitus long chain dyeing machine operator insulin use: without residential use Hypercholesterolemia E78.00 Essential hypertension I10 Hypertension type: essential hypertension Generalized anxiety disorder F41.1 Colon cancer screening Z12.11 Peripheral vascular disease I73.9 Assessment & Plan Assessment & Plan (1) Morbid obesity: Code(s): E66.01 - Morbid (severe) obesity due to excess calories Category: Medical Plan: Diet and exercise (2) Type 2 diabetes mellitus with hyperglycemia: Comment: Dr. Goode Code(s): E11.65 - Type 2 diabetes mellitus with hyperglycemia Category: Medical Qualifiers: Diabetes mellitus residential insulin use: without residential use Qualified Code(s): E11.65 - Type 2 diabetes mellitus with hyperglycemia Plan: Decrease the amount of carbohydrate intake, pasta, bread, rice and potatoes are all sugar and that is aside from all the sweet stuff, remember that fruits are good but they are Sweet also. Hemoglobin A1c goal of less than 6.5. Patient on glimepiride 4 mg once a day metformin 500 mg twice a day pioglitazone 15 mg once a day. (3) Hypercholesterolemia: Code(s): E78.00 - Pure hypercholesterolemia, unspecified Category: Medical Plan: Avoid fried foods, chicken skin, eggs, butter margarine, pastries and meat. Be it pork or beef they have a lot of cholesterol LDL goal of less than 100 and triglyceride of less than 150 on simvastatin 10 mg at bedtime patient's cholesterol was not done. (4) Hypertension: Code(s): I10 - Essential (primary) hypertension Category: Medical Qualifiers: Hypertension type: essential hypertension Qualified Code(s): I10 - Essential (primary) hypertension Plan: Continue with blood pressure medication. Decrease salt intake and exercise takes lisinopril 10 mg once a day BP at home has been good SBP 120-125/78 continue with lisinopril (5) Generalized anxiety disorder: Comment: [facility] Code(s): F41.1 - Generalized anxiety disorder Category: Medical Plan: Continue with counseling. (6) Colon cancer screening: Code(s): Z12.11 - Encounter for screening for malignant neoplasm of colon Category: Medical Plan: Patient declined colonoscopy and would like Cologuard testing but requested the Cologuard be tested 1 month before the scheduled follow-up (7) Peripheral vascular disease: Code(s): I73.9 - Peripheral vascular disease, unspecified Category: Medical Plan: When sitting down elevate the legs, exercise, and support stockings Orders: Orders Thyroid Stimulating Hormone Today E11.65 - Type 2 diabetes mellitus with hyperglycemia Vitamin B12 and Folate Today E11.65 - Type 2 diabetes mellitus with hyperglycemia Lipid Panel Today E11.65 - Type 2 diabetes mellitus with hyperglycemia, E78.00 - Pure hypercholesterolemia, unspecified Comprehensive Met. Panel Today E11.65 - Type 2 diabetes mellitus with hyperglycemia Microalbumin, Random (w Creat) Today E11.65 - Type 2 diabetes mellitus with hyperglycemia Free T4 (Free Thyroxine) Today E11.65 - Type 2 diabetes mellitus with hyperglycemia Vitamin D 25-OH Total Today E11.65 - Type 2 diabetes mellitus with hyperglycemia Medications: New ondansetron 4 mg PO Q8H PRN 20 tabs 1RF nausea and vomiting E11.65 - Type 2 diabetes mellitus with hyperglycemia Refilled simvastatin 10 mg PO DAILY 90 tabs 3RF E78.00 - Pure hypercholesterolemia, unspecified lisinopril 10 mg PO DAILY 90 tabs 2RF meloxicam 15 mg PO DAILY 90 tabs 1RF 90 days S03.00XA - Dislocation of jaw, unspecified side, initial encounter pioglitazone 15 mg PO DAILY 90 tabs 2RF 90 days E11.65 - Type 2 diabetes mellitus with hyperglycemia
[2024-06-13 10:46] VITALS: BP 144/94; PULSE 95; O2SAT 100; BMI 44.8
== END 2024-06-13 11:16 | disposition home or self-care (01) ==
PROVIDERS: PCP Internal Medicine; Visit Provider Internal Medicine
DX: E11.65 Type 2 diabetes mellitus with hyperglycemia (principal); I73.9 Peripheral vascular disease, unspecified; E66.813 Obesity, class 3; Z68.41 Body mass index [BMI] 40.0-44.9, adult; E78.00 Pure hypercholesterolemia, unspecified; I10 Essential (primary) hypertension; F41.1 Generalized anxiety disorder; Z12.11 Encounter for screening for malignant neoplasm of colon

== ENCOUNTER → 2024-06-13 10:40 | Outpatient (BNVA) | payer OTHER, SELFPAY | PROVIDERS: PCP Internal Medicine; Visit Provider Internal Medicine | DX: I10 Essential (primary) hypertension (principal); E66.01 Morbid (severe) obesity due to excess calories; E11.65 Type 2 diabetes mellitus with hyperglycemia; E78.00 Pure hypercholesterolemia, unspecified; F41.1 Generalized anxiety disorder; I73.9 Peripheral vascular disease, unspecified | CPT/HCPCS: 99212 ==

== ENCOUNTER 2024-10-02 10:15 | Outpatient (REF) | payer OTHER, SELFPAY ==
[2024-10-02 12:19] LABS: Creatinine Urine 46.86 mg/dL; Microalbum/Creatinine Ratio Ur 12.8 ug/mg cr (<30)
[2024-10-02 12:31] LABS: Alanine Aminotransferase 12 U/L (0-31); Alkaline Phosphatase 73 U/L (39-117); Anion Gap 9 (12-20); Aspartate Amino Transferase 20 U/L (5-31); Bilirubin Total 0.4 mg/dL (0.0-1.0); Blood Urea Nitrogen 19 mg/dL (9-16); Calcium 9.7 mg/dL (8.4-10.2); Carbon Dioxide 28 mmol/L (22-29); Chloride 107 mmol/L (96-108); Cholesterol 123 mg/dL (<200); Estimated Glomerular Filt Rate > 60; Glucose Random 138 mg/dL (60-115); HDL Cholesterol 49 mg/dL (>40); LDL Cholesterol Calculated 62 mg/dL (<100); Potassium 4.9 mmol/L (3.3-5.1); Sodium 139 mmol/L (135-145); Total Protein 8.1 g/dL (6.5-8.0); Triglycerides 61 mg/dL (<150)
[2024-10-02 12:47] LABS: Free T4 (Free Thyroxine) 1.31 ng/dL (0.71-1.85); Thyroid Stimulating Hormone 1.84 uIU/mL (0.32-4.0); Vitamin D 25-OH Total 59.7 ng/mL (>30)
[2024-10-02 12:53] LABS: Folate > 20.0 ng/mL (> or = 4.0); Vitamin B12 785 pg/mL (200-900)
== END 2024-10-02 10:16 | disposition home or self-care (01) ==
LOC: HO.LAB 10:15
PROVIDERS: PCP Internal Medicine; Visit Provider Internal Medicine
DX: E11.65 Type 2 diabetes mellitus with hyperglycemia (principal); E78.00 Pure hypercholesterolemia, unspecified
CPT/HCPCS: 36415; 80053; 80061; 82043; 82306; 82570; 82607; 82746; 84439; 84443

== ENCOUNTER → 2024-10-05 10:45 | Outpatient (BNVA) | payer OTHER, SELFPAY | PROVIDERS: PCP Internal Medicine; Visit Provider Internal Medicine | DX: E11.65 Type 2 diabetes mellitus with hyperglycemia (principal); E78.00 Pure hypercholesterolemia, unspecified; I10 Essential (primary) hypertension; F41.1 Generalized anxiety disorder | CPT/HCPCS: 96127 ==

== ENCOUNTER 2025-02-06 10:52 | Outpatient (AMB) | payer OTHER, SELFPAY ==
[2025-02-06 10:56] VITALS: BP 136/84; PULSE 81; O2SAT 98; BMI 44.5
--- NOTE | 2025-02-06 10:56 | A.OFFPC_ITS ---
Vital Signs 02/06/25 10:56 Height 5 ft 2 in Weight 243 lb 8 oz BMI 44.5 BP 136/84 Blood Pressure Location Lt brachial Position Sitting Pulse 81 Pulse Source Pulse Oximeter Pulse Oximetry (%) 98 Oxygen Delivery Method Room Air Intake Visit Reasons: Annual Exam Hook Up Driver Required: No Accompanied by: Self / Same As Patient Medication List - Last Reconciled 02/06/25 by Vida Catherine MD acetaminophen (Tylenol) 650 mg PO Q6H PRN ascorbate calcium (vitamin C) 500 mg PO DAILY [Black Elderberry 2,000 mg PO DAILY] blood pressure monitor (Blood Pressure Kit) As directed blood sugar diagnostic (FreeStyle Lite Strips) As directed check the BS QD blood-glucose meter (FreeStyle Lite Meter kit) As directed cholecalciferol (vitamin D3) 50 mcg PO DAILY 90 days flash glucose scanning reader (CogneaStyle Shreya 2 [place]) As directed flash glucose sensor (FreeStyle Shreya 2 Sensor kit) As directed glimepiride 4 mg PO DAILY lactobacillus combination no.4 (Probiotic) 3,000 mmu cells PO DAILY lancets (FreeStyle Lancets) As directed check BS QD lisinopril 10 mg PO DAILY loratadine 10 mg PO DAILY 90 days meloxicam 15 mg PO DAILY 90 days metformin 500 mg PO BID multivitamin 1 tab PO DAILY ondansetron 8 mg PO Q8H PRN pen needle, diabetic (BD Ultra-Fine Mini Pen Needle) As directed inject lantus once a day 10 u or as directed pioglitazone 15 mg PO DAILY 90 days simvastatin 10 mg PO DAILY [Tumeric 500 mg PO DAILY] Tobacco use date assessed: 02/06/25 Dental Screening Dental Screen Date: 02/06/25 Did you have a dental visit in the last 12 months?: No Did you have a dental problem in the last 6 months where you did not have access to dental care?: No Was dental information given to patient?: No [facility] Medical History (Updated 02/06/25 @ 11:49 by Vida Catherine MD) Obesity Pancreatitis Splenomegaly Hypertension Insomnia Cholelithiasis Hypercholesterolemia Type 2 diabetes mellitus with hyperglycemia Surgical History History of tonsillectomy History of section Family History Other Mental health disorder Social History Housing: House Alcohol intake: never Patient Tobacco Use Status: Never used Tobacco Tobacco use type: Cigarette e-Cigarette/Vaping Use: Never Used Second Hand Smoke Exposure: No service: No Current occupational status: disabled Cognitive needs: No Hearing needs: No Vision needs: Yes Questionnaire PHQ-9 Over the last 2 weeks, how often have you been bothered by any of the following problems? 1. Little interest or pleasure in doing things: not at all 2. Feeling down, depressed, or hopeless: not at all 3. Trouble falling or staying asleep, or sleeping too much: not at all 4. Feeling tired or having little energy: not at all 5. Poor appetite or overeating: not at all 6. Feeling bad about yourself - or that you are a failure or have let yourself or your family down: not at all 7. Trouble concentrating on things, such as reading the newspaper or watching television: not at all 8. Moving or speaking so slowly that other people could have noticed. Or the opposite - being so fidgety or restless that you have been moving around a lot more than usual: not at all 9. Thoughts that you would be better off or of hurting yourself in some way: not at all Total score: 0 Source: Developed by Drs. Ky Shen, Emely Gill, Efrain Chavarria and colleagues, with an educational myke from [employer]. Thrive Questionnaire Date Thrive assessed: 02/06/25 I am a: Patient What is your living situation today?: I have a steady place to live Within the past 12 months, did the food you bought not last and you didn't have the money to get more?: Never true Within the past 12 months, did you worry whether your food would run out before you got money to buy more?: Never true Do you have trouble paying for medicines?: No Do you have trouble getting transportation to medical appointments?: No Do you have trouble paying your heating and electricity bill?: No Do you have trouble taking care of your child, family member or friend?: No Do you have trouble with day-to-day activities such as bathing, preparing meals, shopping, managing finances, etc.?: No Are you currently unemployed and looking for a job?: I choose not to answer this question Are you interested in more education?: No Please select the resources that you would like help with: None Currently or been in a relationship where the following occur: I choose not to answer THRIVE Score: 0 AUDIT C Alcohol Use Questionnaire (AUDIT-C) 1. How often do you have a drink containing alcohol?: Never 3. How often do you have six or more drinks on one occasion?: Never Total Score: 0 SHEELA-7 AMB Questionnaire SHEELA-7 Date SHEELA - 7 assessed: 02/06/25 Feeling nervous, anxious, or on edge: 1 = Several days Not being able to stop or control worryin = Not at all Worrying too much about different things: 0 = Not at all Trouble relaxin = Not at all Being so restless that it is hard to sit still: 0 = Not at all Becoming easily annoyed or irritable: 0 = Not at all Feeling afraid as if something awful might happen: 0 = Not at all Total SHEELA-7 score (0-4 normal; 5-9 mild; 10-14 moderate; 15-21 severe): 1 Source: Developed by Drs. Ky Shen, Emely Gill, Efrain Chavarria and colleagues, with an educational myke from [employer]. Review of Systems Const Denies poor appetite and Denies weakness Eyes Denies no additional complaints ENT Reports Normal hearing present, Denies dizziness, Denies nasal congestion, Denies tinnitus and Denies sore throat Card Denies chest pain, Denies syncope, Denies rapid heart rate and Denies dyspnea Resp Denies cough and Denies dyspnea GI Denies change in stool character, Reports constipation, Denies diarrhea, Denies nausea and Denies vomiting Denies urinary frequency, Denies difficulty voiding and Denies dysuria Neuro Reports Normal hearing present, Denies confusion, Denies dizziness, Denies syncope and Denies weakness Psych Denies confusion Physical exam (Primary Care) Vital Signs: Last Vital Signs Pulse 81 02/06/25 10:56 BP 136/84 02/06/25 10:56 Pulse Ox 98 02/06/25 10:56 Oxygen Delivery Method Room Air 02/06/25 10:56 BMI result Body Mass Index 44.5 Tobacco/Smoking Status: Tobacco use Status Tobacco use date assessed 02/06/25 02/06/25 10:57 Patient Tobacco Use Status Never used Tobacco 02/06/25 10:57 Tobacco use type Cigarette 02/06/25 10:57 e-Cigarette/Vaping Use Never Used 02/06/25 10:57 PHQ-9: PHQ-9 Score PHQ-9: Total score 0 02/06/25 11:35 Thrive Assessment: Date of Thrive Assessment Date Thrive assessed 02/06/25 02/06/25 10:57 Currently or been in a relationship where the following occur: I choose not to answer Const General: No confusion Orientation/consciousness: No confusion HENMT Head: Yes normocephalic Ears: external ears normal and TM's normal bilaterally Face and sinus: Yes normal facial exam Mouth: moist mucous membranes Throat: Yes tonsils normal Eyes Conjunctivae: conjunctivae normal Pupils: Equal, round and reactive pupils present and Pupil accommodation reflex normal Direct Ophthalmoscopy: normal light reflex Neck Neck: No lymphadenopathy Thyroid: Thyroid normal Chest Chest palpation & inspection: normal inspection of the chest Resp Effort & Inspection: normal respiratory effort and no audible wheezes Auscultation: clear to auscultation bilaterally, no crackles, no wheezes and lung sounds not diminished Cardio Rate: regular rate Rhythm: regular rhythm Peripheral pulses: radial pulses present and dorsalis pedis present GI Other: decline rectal Palpation (GI): no masses Auscultation: normal bowel sounds and normoactive bowel sounds Skin General skin exam: no rashes or lesions noted Rashes: no rashes Neuro General: No confusion Cranial nerves: Yes Equal, round and reactive pupils present and Yes Normal hearing present Cognition (Neuro): normal cognition Gait exam (Neuro): Normal gait present Motor exam (neuro): 5/5 motor strength present throughout Deep tendon reflexes (DTR's): Right brachioradialis reflex intensity grade: 2+, Left brachioradialis reflex intensity grade: 2+, Right patellar reflex intensity grade: 2+ and Left patellar reflex intensity grade: 2+ Extrem Other: tinea pedis , onychomycosis, pedla pulse is good , + edema LE General: No edema Results AMB Hemoglobin A1c AMB Hemoglobin A1c 5.3 % Last Edit by LAN Sanchez on 02/06/25 11 :18 Results Reviewed Results Reviewed: Laboratory Last Values Hgb A1c (Clinic) 5.3 % (4.0-6.0) 02/06/25 10:58 Coding Level of Care Code Est Pt Prev Care 40-64y(19765) Diagnoses Annual physical exam Z00.00 Colon cancer screening Z12.11 Breast cancer screening by mammogram Z12.31 Type 2 diabetes mellitus with hyperglycemia, without long-term current use of insulin E11.65 Diabetes mellitus predatory animal exterminator insulin use: without shelter use Hypercholesterolemia E78.00 Essential hypertension I10 Hypertension type: essential hypertension Generalized anxiety disorder F41.1 Morbid obesity E66.01 Colonoscopy refused Z53.20 Mammogram declined Z53.20 Tinea pedis B35.3 Peripheral vascular disease I73.9 Assessment & Plan Assessment & Plan (1) Annual physical exam: Code(s): Z00.00 - Encounter for general adult medical examination without abnormal findings Category: Medical Plan: Patient is advised to eat healthy, keep well hydrated, keep active and have adequate sleep. (2) Colon cancer screening: Code(s): Z12.11 - Encounter for screening for malignant neoplasm of colon Category: Medical Plan: Patient is reminded about colonoscopy (3) Breast cancer screening by mammogram: Code(s): Z12.31 - Encounter for screening mammogram for malignant neoplasm of breast Category: Medical Plan: Patient is reminded about mammogram (4) Type 2 diabetes mellitus with hyperglycemia: Comment: Dr. Goode Code(s): E11.65 - Type 2 diabetes mellitus with hyperglycemia Category: Medical Qualifiers: Diabetes mellitus predatory animal exterminator insulin use: without shelter use Qualified Code(s): E11.65 - Type 2 diabetes mellitus with hyperglycemia Plan: Decrease the amount of carbohydrate intake, pasta, bread, rice and potatoes are all sugar and that is aside from all the sweet stuff, remember that fruits are good but they are Sweet also. Hemoglobin A1c goal of less than 6.5. Patient on glimepiride metformin and pioglitazone. (5) Hypercholesterolemia: Code(s): E78.00 - Pure hypercholesterolemia, unspecified Category: Medical Plan: Avoid fried foods, chicken skin, eggs, butter margarine, pastries and meat. Be it pork or beef they have a lot of cholesterol LDL goal of less than 100 and triglyceride of less than 150 September 2024 last blood work on simvastatin 10 mg once a day (6) Hypertension: Code(s): I10 - Essential (primary) hypertension Category: Medical Qualifiers: Hypertension type: essential hypertension Qualified Code(s): I10 - Essential (primary) hypertension Plan: Continue with blood pressure medication. Decrease salt intake and exercise on lisinopril 10 mg once a day (7) Generalized anxiety disorder: Comment: [place] fred garcia (05/2022) Code(s): F41.1 - Generalized anxiety disorder Category: Medical Plan: Continue with counseling and therapy (8) Morbid obesity: Code(s): E66.01 - Morbid (severe) obesity due to excess calories Category: Medical Plan: Diet and exercise (9) Colonoscopy refused: Code(s): Z53.20 - Procedure and treatment not carried out because of patient's decision for unspecified reasons Category: Medical (10) Mammogram declined: Code(s): Z53.20 - Procedure and treatment not carried out because of patient's decision for unspecified reasons Category: Medical (11) Tinea pedis: Code(s): B35.3 - Tinea pedis Category: Medical (12) Peripheral vascular disease: Code(s): I73.9 - Peripheral vascular disease, unspecified Category: Medical Plan History of Present Illness The patient is a 59-year-old female presenting for a follow-up and physical examination. Her chronic conditions including type 2 diabetes mellitus, hypercholesterolemia, and hypertension are all discussed with current management reviewed and adjustments contemplated. The patient reports good dietary habits, emphasizing an increased intake of fruits, vegetables, oatmeal, and salmon as part of her diabetes management, which is well reflected in current blood glucose metrics. Hypoglycemic episodes were minimal, yet careful monitoring is advised due to the medication regimen involving glimepiride. The patient?s anxiety and stress levels are continuous concerns she manages through lifestyle and therapy. Her living situation impacts her stress and anxiety levels, compounded by seasonal factors affecting her foot condition, for which additional podiatry care is considered. Health Maintenance - Reminded about the need for colonoscopy and mammogram screenings. - Recent blood work in September showing LDL of 62 mg/dL, which is favorable. - Hemoglobin A1c was noted at 5.3, indicating well-controlled diabetes. - Counseling on dietary choices that impact diabetes management. - Encouragement to maintain current lifestyle modifications to manage chronic conditions. - Discussion of a possible foot evaluation with podiatry due to fungal infection concerns. Social History - Lives alone, which contributes to stress and anxiety levels. - Reports an improved diet inclusive of fruits, vegetables, oatmeal, and salmon. - Visits Dr. Andrade in [place] regularly for eye examinations due to diabetes. Review of Systems - Eyes: Denies pain during examination; last eye examination was one month ago. - Cardiovascular: Denies chest pain or shortness of breath. - Gastrointestinal: Denies abdominal pain; advised caution with meloxicam due to potential stomach upset. - Dermatologic: Reports mosquito bite reaction at home, no active rashes or infections reported. - Neurologic: Denies numbness. - General: Reports stress and challenges linked to living alone. - Motion: Difficulty in putting on socks due to body habitus; generally functional. Physical Exam - General- Cooperative and oriented during exam. - Skin- Evidence of scratching likely due to insect bite; no rashes observed otherwise. - Eyes- Light shone without noted pain; coordinated tracking. - Cardiovascular- Heart sounds auscultated; no abnormalities reported. - Musculoskeletal- Normal movement with assistance for footwear. - Neurological- Strength and movement intact; coordinated gestures noted. Results - Labs: September LDL cholesterol 62 mg/dL, hemoglobin A1c 5.3% Plan The current medication regimen will continue with modifications to glimepiride to prevent hypoglycemia. Diabetes management will include maintaining current dietary habits, with metformin and pioglitazone prescriptions to continue. Lisinopril and simvastatin will be maintained, monitoring adherence to desired LDL and blood pressure targets. Stress management strategies will include therapy and lifestyle adjustments. Podiatry consultation is advised for potential fungal foot infections, and continued health maintenance through screenings and preventive measures, such as vaccines, is encouraged. Follow-up is scheduled in six months, including pre-visit laboratory work. Patient was informed and verbally consented to the use of an ambient scribe for clinic note documentation during this visit. Discussion Notes I discussed with the patient the importance of maintaining current management strategies for her chronic conditions, including the benefits and risks of adjusting glimepiride in managing blood sugar levels. I highlighted the importance of continued lifestyle modifications in promoting overall health and encouraged adherence to diabetes, hypertension, and hypercholesterolemia management plans. I discussed the potential need for support stockings and a podiatry consultation for foot concerns. Screening protocols for mammograms and colonoscopies were reiterated. I explained that preventative lesions and coping mechanisms for stress related to living alone are essential elements of her care. I scheduled a follow-up visit in six months and instructed necessary lab work completion before this appointment. Patient Instructions - Continue taking metformin, pioglitazone, and lisinopril as prescribed. - Adjust glimepiride dose to half and monitor blood sugar closely. - Maintain a healthy diet with fruits, vegetables, and whole grains. - Schedule and attend mammogram and colonoscopy screenings. - Consider wearing support stockings; visit a medical supply store for purchase. - Contact gravel wheeler for foot care evaluation about fungal concerns. - Monitor stress levels and maintain therapy sessions. - Obtain a pneumonia vaccine at an appropriate time. - Follow up with lab tests six months before the next appointment. - Call the office with any questions or concerns. Orders: Orders AMB Hemoglobin A1c Today Z13.9 - Encounter for screening, unspecified Creatinine Urine 6 Months E11.65 - Type 2 diabetes mellitus with hyperglycemia Free T4 (Free Thyroxine) 6 Months E11.65 - Type 2 diabetes mellitus with hyperglycemia Hemoglobin A1c 6 Months E11.65 - Type 2 diabetes mellitus with hyperglycemia UA CC w/rflx Micro + Cult 6 Months E11.65 - Type 2 diabetes mellitus with hyperglycemia, R30.0 - Dysuria Complete Blood Count Auto Diff 6 Months E11.65 - Type 2 diabetes mellitus with hyperglycemia Comprehensive Met. Panel 6 Months E11.65 - Type 2 diabetes mellitus with hyperglycemia Microalbumin, Random (w Creat) 6 Months E11.65 - Type 2 diabetes mellitus with hyperglycemia Thyroid Stimulating Hormone 6 Months E11.65 - Type 2 diabetes mellitus with hyperglycemia Vitamin B12 and Folate 6 Months E11.65 - Type 2 diabetes mellitus with hyperglycemia Lipid Panel 6 Months E11.65 - Type 2 diabetes mellitus with hyperglycemia, E78.00 - Pure hypercholesterolemia, unspecified Referrals Podiatry Referral E11.65 - Type 2 diabetes mellitus with hyperglycemia Medications: New compress.stocking,knee,reg,lrg As directed 20-30 mm HG 12 ea 0RF I73.9 - Peripheral vascular disease, unspecified Changed From glimepiride 4 mg PO DAILY 90 tabs 3RF To glimepiride 2 mg (1/2 x 4 mg) PO DAILY 90 tabs 3RF Refilled glimepiride 4 mg PO DAILY 90 tabs 3RF lisinopril 10 mg PO DAILY 90 tabs 3RF ondansetron 8 mg PO Q8H PRN 20 tabs 3RF nausea and vomiting E11.65 - Type 2 diabetes mellitus with hyperglycemia metformin 500 mg PO BID 180 tabs 3RF E11.65 - Type 2 diabetes mellitus with hyperglycemia pioglitazone 15 mg PO DAILY 90 tabs 3RF 90 days E11.65 - Type 2 diabetes mellitus with hyperglycemia meloxicam 15 mg PO DAILY 90 tabs 1RF 90 days S03.00XA - Dislocation of jaw, unspecified side, initial encounter
== END 2025-02-06 11:56 | disposition home or self-care (01) ==
LOC: HO.HMCH 10:55
PROVIDERS: PCP Internal Medicine; Visit Provider Internal Medicine
DX: Z00.00 Encounter for general adult medical examination without abnormal findings (principal); E11.65 Type 2 diabetes mellitus with hyperglycemia; E66.01 Morbid (severe) obesity due to excess calories; Z68.41 Body mass index [BMI] 40.0-44.9, adult; E78.00 Pure hypercholesterolemia, unspecified; I10 Essential (primary) hypertension; F41.1 Generalized anxiety disorder; Z12.11 Encounter for screening for malignant neoplasm of colon; Z12.31 Encounter for screening mammogram for malignant neoplasm of breast; Z53.20 Procedure and treatment not carried out because of patient's decision for unspecified reasons; B35.3 Tinea pedis; I73.9 Peripheral vascular disease, unspecified

== ENCOUNTER → 2025-02-06 10:52 | Outpatient (BNVA) | payer OTHER, SELFPAY | PROVIDERS: PCP Internal Medicine; Visit Provider Internal Medicine | DX: Z00.00 Encounter for general adult medical examination without abnormal findings (principal); E11.65 Type 2 diabetes mellitus with hyperglycemia; E11.51 Type 2 diabetes mellitus with diabetic peripheral angiopathy without gangrene; E78.00 Pure hypercholesterolemia, unspecified; I10 Essential (primary) hypertension; F41.1 Generalized anxiety disorder; E66.01 Morbid (severe) obesity due to excess calories; B35.3 Tinea pedis; S03.00XA Dislocation of jaw, unspecified side, initial encounter; X58.XXXA Exposure to other specified factors, initial encounter; Y93.9 Activity, unspecified; Y92.9 Unspecified place or not applicable; Y99.9 Unspecified external cause status | CPT/HCPCS: 83036; 99396 ==

== ENCOUNTER 2025-02-14 17:00 | Emergency (ER) | payer OTHER, SELFPAY ==
[2025-02-14 18:16] VITALS: BP 134/76; PULSE 97; O2SAT 98
[2025-02-14 18:20] VITALS: BP 112/73; PULSE 93; RESP 18; TEMP 36.2; O2SAT 98; BMI 42.1
--- NOTE | 2025-02-14 18:25 | ED_ITS ---
HPI - General Adult General Chief complaint: Abdominal Pain Stated complaint: n/v hx fri , black stool, hx pancreatitis Time Seen by Provider: 02/14/25 23:10 Source: patient Mode of arrival: ambulatory Limitations: no limitations History of Present Illness ED Provider: HPI narrative: Patient's history of pancreatitis about 6 years ago, hypertension, obese and type 2 diabetes comes here for diffuse abdominal pain with nausea vomiting several times and diarrhea 1 time for last 5 days cause bowel movement was 2 days ago patient is able to eat much having nausea at this time no vomiting no other family member sick noticed in travel no fever no chills no upper respiratory symptoms no urinary symptoms Related Data Home Medications ?Medication ?Instructions ?Recorded ?Confirmed acetaminophen 325 mg tablet 650 mg PO Q6H PRN 08/13/20 02/06/25 (Tylenol) multivitamin 1 tab PO DAILY 08/13/20 02/06/25 ascorbate calcium (vitamin C) 500 500 mg PO DAILY 02/04/24 02/06/25 mg tablet lactobacillus combination no.4 3 3,000 mmu cells PO DAILY 02/04/24 02/06/25 billion cell capsule (Probiotic) Black Elderberry 2,000 mg PO DAILY 02/07/24 02/06/25 Tumeric 500 mg PO DAILY 02/07/24 02/06/25 Previous Rx's ?Medication ?Instructions ?Recorded flash glucose scanning reader #1 ea 12/30/22 (FreeStyle Shreya 2 [place]) flash glucose sensor (FreeStyle #6 kits 12/30/22 Shreya 2 Sensor kit) blood-glucose meter (FreeStyle #1 ea 08/04/23 Lite Meter kit) loratadine 10 mg tablet 10 mg PO DAILY 90 days #90 tabs 12/26/23 blood pressure monitor (Blood #1 ea 02/04/24 Pressure Kit) pen needle, diabetic 31 gauge x #100 ea 02/04/24 3/16 (BD Ultra-Fine Mini Pen Needle) cholecalciferol (vitamin D3) 50 50 mcg PO DAILY 90 days #90 caps 02/07/24 mcg (2,000 unit) capsule blood sugar diagnostic (FreeStyle #100 ea 10/05/24 Lite Strips) lancets 28 gauge (FreeStyle #100 ea 10/05/24 Lancets) simvastatin 10 mg tablet 10 mg PO DAILY #90 tabs 10/05/24 compress.stocking,knee,reg,lrg #12 ea 02/06/25 glimepiride 4 mg tablet 2 mg (1/2 x 4 mg) PO DAILY #90 tabs 02/06/25 lisinopril 10 mg tablet 10 mg PO DAILY #90 tabs 02/06/25 meloxicam 15 mg tablet 15 mg PO DAILY 90 days #90 tabs 02/06/25 metformin 500 mg tablet 500 mg PO BID #180 tabs 02/06/25 ondansetron 8 mg disintegrating 8 mg PO Q8H PRN nausea and 02/06/25 tablet vomiting #20 tabs pioglitazone 15 mg tablet 15 mg PO DAILY 90 days #90 tabs 02/06/25 cefuroxime axetil 500 mg tablet 500 mg PO BID 7 days #14 tabs 02/15/25 Allergies Allergy/AdvReac Type Severity Reaction Status Date / Time No Known Allergies Allergy Verified 02/14/25 18:21 Review of Systems 2 Review of Systems: Yes all other systems are reviewed and are negative PMFSH Past Medical History Medical History Obesity Pancreatitis Splenomegaly Hypertension Insomnia Cholelithiasis Hypercholesterolemia Type 2 diabetes mellitus with hyperglycemia Surgical History History of tonsillectomy History of section Family History Family History Other Mental health disorder Social History Social History Housing: House Alcohol intake: never Patient Tobacco Use Status: Never used Tobacco Tobacco use type: Cigarette Smoked in Last 30 Days: No e-Cigarette/Vaping Use: Never Used Second Hand Smoke Exposure: No Use of substances other than those prescribed or required for medical reasons: No Advance Directives: No Advance Directives Information Provided: Yes Do you have a plan to hurt others: No Plan service: No Current occupational status: disabled Cognitive needs: No Hearing needs: No Vision needs: Yes Physical Exam ED Vital Signs: Vital Signs - 24 hr 02/14/25 22:06 02/14/25 23:19 02/15/25 01:19 Temperature 99 F 98.5 F 98.7 F Pulse Rate 82 84 78 Respiratory Rate 16 16 18 Blood Pressure 130/79 140/71 H 133/75 Pulse Oximetry 98 99 97 Oxygen Delivery Method Nasal Cannula Room Air Room Air 02/15/25 03:02 Temperature 98.2 F Pulse Rate 78 Respiratory Rate 14 Blood Pressure 109/59 L Pulse Oximetry 98 Oxygen Delivery Method Room Air BMI result Body Mass Index 42.1 Appearance: Alert. Oriented X3. No acute distress. Eyes: PERRLA, No Nystagmus ENT: Pharynx normal. Oral Mucosa moist Neck: Normal inspection. Neck supple. CVS: Normal heart rate and rhythm. Pulses normal. Respiratory: No respiratory distress. Equal air entry bilateral, no wheezing/rales/rhonchi Abdomen: Soft and mild diffuse lower abdominal tenderness no rebound tenderness or guarding Bowel sounds are present, no mass palpable, no CVA tenderness Skin: Skin warm and dry. Normal skin color. Normal skin turgor. Extremities: No lower extremity edema. No calf tenderness Neuro: Oriented X 3. No motor deficit. No sensory deficit.No cerebellar signs , cranial nerves II-XII intact Course Course Course Narrative: RME: 59 yold female presents to the ED for pmh of pancreaitits to the ED for abdominal pain and black stool with nuase and vomitting. Pateint dniees any fever or chills. labs ordered. positive for abdominal tenderness Medications Administered Discontinued Medications Generic Name Dose Route Start Last Admin Trade Name Freq PRN Reason Stop Dose Admin Cefuroxime Axetil 500 mg 02/15/25 02:33 02/15/25 02:43 Cefuroxime Axetil 500 Mg Tablet PO 02/15/25 02:34 500 mg ONCE ONE Administration Ondansetron HCl 4 mg 02/14/25 23:24 02/14/25 23:43 Ondansetron Odt 4 Mg Tab.Rapdis TRANSLINGU 02/14/25 23:25 4 mg ONCE ONE Administration Ondansetron HCl 4 mg 02/15/25 01:03 02/15/25 01:18 Ondansetron Odt 4 Mg Tab.Rapdis TRANSLINGU 02/15/25 01:04 4 mg ONCE ONE Administration Medical Decision Making Medical Decision Making MDM Narrative: Patient with diffuse mild abdominal discomfort with nausea vomiting diarrhea feeling much better after p.o. Zofran also had some UTI will give cefuroxime patient does get similar comes symptoms whenever she gets stressed out been on Zofran at home Differential Diagnosis Differential Diagnoses: The differential diagnosis associated with the presentation includes Gastroenteritis/UTI/anxiety/stress Lab Data MDM Lab Attestation statement: I reviewed the patient's lab results. 02/14/25 18:40 02/14/25 18:40 Labs: Lab Results 02/14/25 02/14/25 02/15/25 Range/Units 18:40 23:45 01:46 WBC 15.1 H (4.8-10.8) X10*3/uL RBC 5.13 (4.20-5.50) X10*6/uL Hgb 13.7 (12.0-16.0) g/dl Hct 39.9 (37.0-47.0) % MCV 77.8 L (80.0-98.0) fL MCH 26.7 L (27.0-33.0) pg MCHC 34.3 (31.0-35.0) g/dl RDW 14.2 (11.0-16.0) % Plt Count 517 H D (160-400) X10*3/uL MPV 9.7 (9.4-12.3) fL Immature Gran % (Auto) 1.1 H (0.0-0.4) % Neut % (Auto) 80.7 H (45-73) % Lymph % (Auto) 9.2 L (20-40) % [place] % (Auto) 8.4 (2-11) % Eos % (Auto) 0.3 (0-4) % Baso % (Auto) 0.3 (0-2) % Lymph # (Auto) 1.4 (1.2-4.9) X10*3/uL [place] # (Auto) 1.3 H (0.1-1.2) X10*3/uL Eos # (Auto) 0.0 (0.0-0.4) X10*3/uL Baso # (Auto) 0.0 (0.0-0.2) X10*3/uL Abs Immat Gran (auto) 0.17 H (0.00-0.03) X10*3/uL Absolute Neuts (auto) 12.2 H (2.0-8.3) x10*3/uL Absolute Nucleated RBC 0.000 (0.0-0.012) X10*3/uL Nucleated RBC % (auto) 0.0 (0.0-0.2) /100WBC PT 13.3 H (10.9-12.4) SEC INR 1.2 H (0.9-1.1) APTT 30.1 (26.0-36.8) SEC Sodium 138 (135-145) mmol/L Potassium 3.7 D (3.3-5.1) mmol/L Chloride 99 (96-108) mmol/L Carbon Dioxide 27 (22-29) mmol/L Anion Gap 16 (12-20) BUN 25 H (9-16) mg/dL Creatinine 0.88 (0.5-1.4) mg/dL Estim Creat Clear Calc 79.0 Estimated GFR > 60 Random Glucose 275 H (60-115) mg/dL Calcium 9.4 (8.4-10.2) mg/dL Total Bilirubin 0.7 (0.0-1.0) mg/dL AST 20 (5-31) U/L ALT 13 (0-31) U/L Alkaline Phosphatase 65 (39-117) U/L Total Protein 7.4 (6.5-8.0) g/dL Albumin 4.0 (3.5-5.0) g/dL Lipase 27 (8-78) U/L Urine Color Dark Yellow Urine Appearance Clear Urine pH 5.5 (5.0-9.0) Ur Specific [place] >= 1.030 H (1.005-1.025) Urine Protein 30 (1+) H (Neg-Trace) mg/dL Urine Glucose (UA) >=1000 H (Negative) mg/dL Urine Ketones 80 (Negative) mg/dL Urine Blood Negative (Negative) Urine Nitrite Negative (Negative) Ur Leukocyte Esterase Small (1+) H (Negative) Urine RBC 0-2 (0-2) /HPF Urine WBC 21-50 H (0-5) /HPF Ur Squamous Epith Cells 0-2 (0-2) /HPF Urine Bacteria None Seen (None Seen) Hyaline Casts 0-2 (0-2) /LPF Influenza Type A (PCR) NEGATIVE (Negative) Influenza Type B (PCR) NEGATIVE (Negative) RSV RNA Qual (PCR) NEGATIVE (Negative) SARS-CoV-2 RNA (RT-PCR) NEGATIVE (Negative) Discharge Plan Discharge Clinical Impression: UTI (urinary tract infection) Patient Disposition: Home, Self-Care Instructions: Urinary Tract Infection in Women (DC) Additional Instructions: Likely you have abdominal pain and nausea from the urinary tract infection Take antibiotic as prescribed Continue take your nausea medicines and follow up with your PCP Prescriptions: New cefuroxime axetil 500 mg tablet 500 mg PO BID 7 Days Qty: 14 0RF No Action loratadine 10 mg tablet 10 mg PO DAILY 90 Days Qty: 90 3RF Black Elderberry 2,000 mg PO DAILY Tumeric 500 mg PO DAILY cholecalciferol (vitamin D3) 50 mcg (2,000 unit) capsule 50 mcg PO DAILY 90 Days Qty: 90 8RF multivitamin Tablet 1 tab PO DAILY acetaminophen [Tylenol] 325 mg tablet 650 mg PO Q6H PRN (DME) FreeStyle Shreya 2 [place] Misc See Rx Instructions .ROUTE .MEDSUPPLY Qty: 1 0RF Rx Instructions: As directed (DME) FreeStyle Shreya 2 Sensor Kit See Rx Instructions .ROUTE .MEDSUPPLY Qty: 6 0RF Rx Instructions: As directed (DME) blood pressure monitor [Blood Pressure Kit] Kit See Rx Instructions .ROUTE .MEDSUPPLY Qty: 1 0RF Rx Instructions: As directed ascorbate calcium (vitamin C) 500 mg tablet 500 mg PO DAILY Probiotic 3 billion cell capsule 3,000 mmu cells PO DAILY Rx Instructions: administer with a meal (DME) pen needle, diabetic [BD Ultra-Fine Mini Pen Needle] 31 gauge x 3/16 needle See Rx Instructions .Route Qty: 100 3RF Rx Instructions: As directed inject lantus once a day 10 u or as directed (DME) blood-glucose meter [FreeStyle Lite Meter] Kit See Rx Instructions .ROUTE .MEDSUPPLY Qty: 1 0RF Rx Instructions: As directed metformin 500 mg tablet 500 mg PO BID Qty: 180 3RF pioglitazone 15 mg tablet 15 mg PO DAILY 90 Days Qty: 90 3RF lisinopril 10 mg tablet 10 mg PO DAILY Qty: 90 3RF meloxicam 15 mg tablet 15 mg PO DAILY 90 Days Qty: 90 1RF ondansetron 8 mg tablet,disintegrating 8 mg PO Q8H PRN (Reason: nausea and vomiting) Qty: 20 3RF glimepiride 4 mg tablet 2 mg PO DAILY Qty: 90 3RF (DME) compress.stocking,knee,reg,lrg Misc See Rx Instructions .Route Qty: 12 0RF Rx Instructions: As directed 20-30 mm HG simvastatin 10 mg tablet 10 mg PO DAILY Qty: 90 3RF (DME) lancets [FreeStyle Lancets] 28 gauge misc See Rx Instructions .ROUTE .MEDSUPPLY Qty: 100 3RF Rx Instructions: As directed check BS QD (DME) FreeStyle Lite Strips Strip See Rx Instructions .ROUTE .MEDSUPPLY Qty: 100 3RF Rx Instructions: As directed check the BS QD Interventions: ED Discharge Assessment Last Done: 02/15/25 03:02 Discharge Date/Time: 02/15/25 03:07 Print Language: Kyrgyz
[2025-02-14 18:44] LABS: MANUAL DIFF FLAG NO
[2025-02-14 18:46] LABS: Basophils Percent Auto 0.3 % (0-2); Eosinophils Percent Auto 0.3 % (0-4); Hematocrit 39.9 % (37.0-47.0); Hemoglobin 13.7 g/dl (12.0-16.0); Imm Gran Abs Auto 0.17 X10*3/uL (0.00-0.03); Imm Gran Pct Auto 1.1 % (0.0-0.4); Lymphocytes Absolute Auto 1.4 X10*3/uL (1.2-4.9); Lymphocytes Percent Auto 9.2 % (20-40); Mean Corpuscular HGB Conc 34.3 g/dl (31.0-35.0); Mean Corpuscular Hemoglobin 26.7 pg (27.0-33.0); Mean Corpuscular Volume 77.8 fL (80.0-98.0); Mean Platelet Volume 9.7 fL (9.4-12.3); Monocytes Absolute Auto 1.3 X10*3/uL (0.1-1.2); Monocytes Percent Auto 8.4 % (2-11); Neutrophils Absolute Auto 12.2 x10*3/uL (2.0-8.3); Neutrophils Percent Auto 80.7 % (45-73); Platelet Count 517 X10*3/uL (160-400); Red Blood Count 5.13 X10*6/uL (4.20-5.50); Red Cell Distribution Width 14.2 % (11.0-16.0); White Blood Count 15.1 X10*3/uL (4.8-10.8)
[2025-02-14 18:56] LABS: INTERNATIONAL NORM RATIO 1.2 (0.9-1.1); Prothrombin Time 13.3 SEC (10.9-12.4)
[2025-02-14 18:59] LABS: Partial Thromboplastin Time 30.1 SEC (26.0-36.8)
[2025-02-14 19:10] LABS: Alanine Aminotransferase 13 U/L (0-31); Alkaline Phosphatase 65 U/L (39-117); Anion Gap 16 (12-20); Aspartate Amino Transferase 20 U/L (5-31); Bilirubin Total 0.7 mg/dL (0.0-1.0); Blood Urea Nitrogen 25 mg/dL (9-16); Calcium 9.4 mg/dL (8.4-10.2); Carbon Dioxide 27 mmol/L (22-29); Chloride 99 mmol/L (96-108); Estimated Glomerular Filt Rate > 60; Glucose Random 275 mg/dL (60-115); Lipase 27 U/L (8-78); Potassium 3.7 mmol/L (3.3-5.1); Sodium 138 mmol/L (135-145); Total Protein 7.4 g/dL (6.5-8.0)
[2025-02-14 22:06] VITALS: BP 130/79; PULSE 82; RESP 16; TEMP 37.2; O2SAT 98
[2025-02-14 23:19] VITALS: BP 140/71; PULSE 84; RESP 16; TEMP 36.9; O2SAT 99
[2025-02-14] MEDS: Ondansetron ODT 4 MG TAB.RAPDIS TRANSLINGU (23:43)
[2025-02-15 00:31] LABS: Influenza A PCR NEGATIVE (Negative); Influenza B PCR NEGATIVE (Negative); Resp Syncy Virus RNA Qual PCR NEGATIVE (Negative); SARS COV2 PCR INHOUSE NEGATIVE (Negative)
[2025-02-15] MEDS: Ondansetron ODT 4 MG TAB.RAPDIS TRANSLINGU (01:18)
[2025-02-15 01:19] VITALS: BP 133/75; PULSE 78; RESP 18; TEMP 37.1; O2SAT 97
[2025-02-15 01:52] LABS: Appearance Urine Clear; Color Urine Dark Yellow; Glucose Urine UA >=1000 mg/dL (Negative); Leukocyte Esterase Urine Small (1+) (Negative); Nitrite Urine Negative (Negative); PH 5.5 (5.0-9.0); Specific Gravity - Urine >= 1.030 (1.005-1.025); UMIC TRIGGER UACC YES; Urine Blood Negative (Negative); Urine Ketones 80 mg/dL (Negative); Urine Protein 30 (1+) mg/dL (Neg-Trace)
[2025-02-15 01:55] LABS: Bacteria Urine None Seen (None Seen); Hyaline Casts Urine 0-2 /LPF (0-2); RBC Urine 0-2 /HPF (0-2); Squamous Epithelial Cell Urine 0-2 /HPF (0-2); UACC Culture Trigger YES; WBC Urine 21-50 /HPF (0-5)
[2025-02-15] MEDS: cefuroxime axetiL 500 MG TABLET PO (02:43)
[2025-02-15 03:02] VITALS: BP 109/59; PULSE 78; RESP 14; TEMP 36.8; O2SAT 98
== END 2025-02-15 03:07 | disposition home or self-care (01) ==
PROVIDERS: Physician Assistant; Emergency Provider Internal Medicine; PCP Internal Medicine
DX: N39.0 Urinary tract infection, site not specified (principal); Z03.818 Encounter for observation for suspected exposure to other biological agents ruled out; E11.9 Type 2 diabetes mellitus without complications; I10 Essential (primary) hypertension; E78.00 Pure hypercholesterolemia, unspecified; R05.9 Cough, unspecified; Z79.84 Long term (current) use of oral hypoglycemic drugs; Z79.899 Other long term (current) drug therapy
CPT/HCPCS: 0241U; 36415; 80053; 81001; 83690; 85025; 85610; 85730; 87086; 87147; 99284